=== PATIENT | male | born 1965 | race Caucasian/White ===

== ENCOUNTER 2019-08-19 12:13 | Observation (INO) ==
[2019-08-19 13:07] LABS: BASOPHILS # (AUTO) 0.1 X10^3/uL (0.0-0.1); EOSINOPHILS % (AUTO) 0.4 % (0.9-2.9); HEMATOCRIT 39.4 % (42.0-54.0); HEMOGLOBIN 13.3 g/dL (13.5-18.0); LYMPHOCYTES # (AUTO) 2.1 X10^3/uL (1.3-2.9); LYMPHOCYTES % (AUTO) 24.9 % (21.0-51.0); MEAN CORPUSCULAR HEMOGLOBIN 30.1 pg (27.0-34.0); MEAN CORPUSCULAR HGB CONC 33.7 g/dL (33.0-35.0); MEAN CORPUSCULAR VOLUME 89.3 fL (80.0-100.0); MEAN PLATELET VOLUME 6.6 fL (7.4-11.0); MONOCYTES # (AUTO) 0.5 x10^3/uL (0.3-0.8); MONOCYTES % (AUTO) 5.6 % (0.0-13.0); NEUTROPHILS # (AUTO) 5.7 x10^3/uL (2.2-4.8); NEUTROPHILS % (AUTO) 68.1 % (42.0-75.0); PLATELET COUNT 349 X10^3/uL (150.0-450.0); RED BLOOD COUNT 4.41 X10^6/uL (4.7-6.0); WHITE BLOOD COUNT 8.3 X10^3/uL (3.6-10.0)
[2019-08-19 13:32] LABS: ALANINE AMINOTRANSFERASE 126 Units/L (12-78); ALBUMIN 4.1 g/dL (3.4-5.0); ALKALINE PHOSPHATASE 164 Units/L (46-116); ASPARTATE AMINO TRANSFERASE 106 Units/L (15-37); BLOOD UREA NITROGEN 16 mg/dL (7-18); CALCIUM 9.1 mg/dL (8.5-10.1); CARBON DIOXIDE 29.8 mmol/L (21-32); CHLORIDE 97 mmol/L (98-107); CKMB % 1.3 % (<4); COR NA(FOR HYPERGLY) 139 mmol/L (136-145); CREATINE KINASE 80 Units/L (39-308); CREATINE KINASE MB < 1.0 ng/mL (0-4.0); CREATININE 1.22 mg/dL (0.70-1.30); LIPASE 184 Units/L (73-393); SODIUM 137 mmol/L (136-145); TOTAL PROTEIN 7.9 g/dL (6.4-8.2); TROPONIN I < 0.02 ng/mL (0-1.5); eGFR NON BLACK RACES > 60 (>60)
--- NOTE | 2019-08-19 14:00 | RAD ---
HISTORYSOBSTUDYCHEST x-ray, 1 VIEWCOMPARISONX-ray 12/26/2018FINDINGSCardiac device leads are unchanged in position. Borderline cardiomegaly is seen but no pulmonary venous congestion is seen. No pneumothorax, focal infiltrate, or pleural effusion is seen.IMPRESSIONBorderline cardiomegaly without evidence of CHF.Electronically signed by: Maximo Linton (August 19, 2019 13:59:25)
[2019-08-19] MEDS ORDERED: PROTONIX TAB 40 MG PO PRN (15:02)
[2019-08-19] MEDS ORDERED: NS 1000 ML 1,000 ML IV SCH (16:00)
[2019-08-19] MEDS: CORDARONE TAB 200 MG PO SCH (16:19)
[2019-08-19] MEDS: D5 1/2 NS 1000 ML 1,000 ML IV SCH (16:20)
--- NOTE | 2019-08-19 16:40 | US ---
HISTORYABNORMAL CT, RUQ PAINSTUDYGALL BLADDERCOMPARISONCT abdomen and pelvis August 18, 2019 a study which suggests a gallbladder wall thickening.TECHNIQUEMultiple leos scale and color flow Doppler images of the right upper quadrant were obtained.FINDINGSThe liver is normal in echotexture and size. The right lobe of the liver measures 15.4 cm sagittal. Normal hepatopetal flow is seen in the portal vein and normal flow is seen in the hepatic veins with a patent hepatic artery. No dilated ducts or focal hepatic lesions are observed. No focal intraparenchymal mass or intrahepatic biliary ductal dilatation can be observeThe right kidney appears normal in size without focal parenchymal mass or nephrolithiasis. The right kidney measurers 9.7 cm in length by 4 point 6 by 5 cm with a cortical thickness of 1.38 cm. Normal vascular flow is seen to the right kidney. There is diffuse gallbladder wall thickening seen on ultrasound as was seen on the CT scan yesterday. No stones are identified. There is no focal gallbladder wall mass but there is rather diffuse gallbladder wall thickening. On 1 or 2 images there may be minimal fluid around the gallbladder. Again no stones or polyps are identified. Gallbladder wall thickness is nearly 5 mm. The common duct is normal measuring 4 mm. No hydronephrosis or perirenal fluid can be observed. The pancreatic head and body are unremarkable. The pancreatic tail is largely obscured by overlying bowel gas.IMPRESSIONDiffuse gallbladder wall thickening at 5 mm without stones or polyps minimal pericystic fluid could not be excluded. Findings are suggestive of a calculus cholecystitis. No evidence of liver disease or ascites is seen to suggest the cause of gallbladder wall thickening.The liver common duct are normal. The right kidney and visualized portions of the pancreas are normal.Electronically signed by: SUZANNE TATUM (August 19, 2019 16:39:26)
[2019-08-19] MEDS: PROTONIX INJ 40 MG VIAL IVP SCH ×3 (16:41→23:00)
[2019-08-19] MEDS ORDERED: PROTONIX INJ 40 MG VIAL ONE (16:42)
[2019-08-19] MEDS: COREG TAB 3.125 MG PO SCH (21:00)
[2019-08-19] MEDS: HumuLIN R SC PRN (21:00)
[2019-08-19] MEDS ORDERED: PROTONIX TAB 40 MG PO SCH (21:00)
[2019-08-19] MEDS: REQUIP PO SCH (21:00)
--- NOTE | 2019-08-19 22:06 | DR.H&P ---
H&P History & Physical for Day of: H&P Date: 08/19/19 Chief Complaint Chief Complaint: abdominal pain, SOB Allergies Allergies Allergy/AdvReac Type Severity Reaction Status Date / Time No Known Drug Allergies Allergy Verified 08/18/19 13:16 History of Present Illness History of Present Illness: Mr. Ramirez is a 53y/o male with a PMH of CAD s/p PCI, AICD, CHF, Type 2 DM, HTN, HLD was seen in the clinic by Dr. Hoskins for abdominal pain. Patient went to the ED on 08/18/2019 with similar symptoms including diffuse abdominal pain and weakness. CTAP showed gallbladder thickening, lab work did not show any significant abnormalities so patient was scheduled to see Dr. Hoskins outpatient. Due to his recent worsening of SOB and abdominal pain, patient was directly admitted from clinic. He reports having diffuse abdominal pain, constipation and has been feeling sick since Apr. He also reports black colored stools. He was admitted in [place] for similar complaints in Apr and was suppose to have a colonoscopy. He started having some cardiac problems with his AICD and then colonoscopy was never done. He has not seen GI. He sees Dr. Soares for cardio, recently seen last week with no changes in medications. Patient reports SOB at rest and exertion, worse when lying flat. He uses oxygen and CPAP at night but not every night. He reports chronic fatigue and weakness. Denies weight changes, no LE edema. He reports abdominal distension, takes stool softners for constipation. Denies fever or chills. He reports occasional nausea or vomiting. Plan: admit to med-surg, check CBC, CMP, Lipase, cardiac profile, FOBT, EKG, CXR, ECHO and gallbladder U/S Resume home medications except Plavix, aldactone, bumex and Eliquis. Start gentle hydration with IVF. Clears for now and then NPO after midnight. Dr. Hoskins will be seeing the patient. Past Medical History Past Medical History: CHF, Coronary Artery Disease, Diabetes, Dyslipidemia and Sleep Apnea Past Surgical History Surgical History: Angioplasty/Stents Additional Surgical History: AICD placement Social History Does patient currently use any type of tobacco product: Yes Have you used tobacco products in the last 12 months: Yes Type of Tobacco Use: Cigarettes How many years tobacco product used: 20 Does any household member use tobacco: No Alcohol Use: Rarely Drug Use: None Prescription drug monitoring program results: PDMP was not reviewed Medications Home Medications: No Known Drug Allergies Allergy (Verified 08/18/19 13:16) CONTINUE taking the following medications amiodarone 100 mg PO DAILY 08/19/19 [History] apixaban [Eliquis] 5 mg PO BID 08/19/19 [History] bumetanide 1 mg PO BID 08/19/19 [History] carvedilol 3.125 mg PO BID 08/19/19 [History] clopidogrel 75 mg PO DAILY 08/19/19 [History] glimepiride 4 mg PO DAILY 08/19/19 [History] metformin 1,000 mg PO BID 08/19/19 [History] pantoprazole 40 mg PO TID PRN 08/19/19 [History] ropinirole 0.5 mg PO HS 08/19/19 [History] spironolactone 25 mg PO BID 08/19/19 [History] Labs Result Diagrams: 08/20/19 05:54 08/20/19 05:54 Labs: Laboratory WBC 8.3 X10^3/uL (3.6-10.0) 08/19/19 12:58 RBC 4.41 X10^6/uL (4.7-6.0) L 08/19/19 12:58 Hgb 13.3 g/dL (13.5-18.0) L 08/19/19 12:58 Hct 39.4 % (42.0-54.0) L 08/19/19 12:58 MCV 89.3 fL (80.0-100.0) 08/19/19 12:58 MCH 30.1 pg (27.0-34.0) 08/19/19 12:58 MCHC 33.7 g/dL (33.0-35.0) 08/19/19 12:58 RDW 16.0 % (11.6-16.5) 08/19/19 12:58 Plt Count 349 X10^3/uL (150.0-450.0) 08/19/19 12:58 MPV 6.6 fL (7.4-11.0) L 08/19/19 12:58 Neut % (Auto) 68.1 % (42.0-75.0) 08/19/19 12:58 Lymph % (Auto) 24.9 % (21.0-51.0) 08/19/19 12:58 [place] % (Auto) 5.6 % (0.0-13.0) 08/19/19 12:58 Eos % (Auto) 0.4 % (0.9-2.9) L 08/19/19 12:58 Baso % (Auto) 1.0 % (0.2-1.0) 08/19/19 12:58 Neut # (Auto) 5.7 x10^3/uL (2.2-4.8) H 08/19/19 12:58 Lymph # (Auto) 2.1 X10^3/uL (1.3-2.9) 08/19/19 12:58 [place] # (Auto) 0.5 x10^3/uL (0.3-0.8) 08/19/19 12:58 Eos # (Auto) 0.0 x10^3/uL (0.0-0.2) 08/19/19 12:58 Baso # (Auto) 0.1 X10^3/uL (0.0-0.1) 08/19/19 12:58 Absolute Nucleated RBC 0.1 /100WBC 08/19/19 12:58 PT 15.2 SECONDS (11.8-14.3) 08/19/19 12:58 INR Target Range - 08/19/19 12:58 INR 1.23 (0.8-1.3) 08/19/19 12:58 Sodium 137 mmol/L (136-145) 08/19/19 12:58 Corrected Sodium 139 mmol/L (136-145) 08/19/19 12:58 Potassium 3.7 mmol/L (3.5-5.1) 08/19/19 12:58 Chloride 97 mmol/L (98-107) L 08/19/19 12:58 Carbon Dioxide 29.8 mmol/L (21-32) 08/19/19 12:58 BUN 16 mg/dL (7-18) 08/19/19 12:58 Creatinine 1.22 mg/dL (0.70-1.30) 08/19/19 12:58 Est GFR (MDRD) Af Amer > 60 (>60) 08/19/19 12:58 Est GFR (MDRD) Non-Af > 60 (>60) 08/19/19 12:58 Glucose 184 mg/dL (65-99) H 08/19/19 12:58 POC Glucose (mg/dL) 216 mg/dL (65-99) H 08/19/19 20:16 Calcium 9.1 mg/dL (8.5-10.1) 08/19/19 12:58 Corrected Calcium TNP 08/19/19 12:58 Magnesium 2.4 mg/dL (1.7-2.9) 08/19/19 12:58 Total Bilirubin 0.70 mg/dL (0.2-1.0) 08/19/19 12:58 AST 106 Units/L (15-37) H 08/19/19 12:58 ALT 126 Units/L (12-78) H 08/19/19 12:58 Alkaline Phosphatase 164 Units/L (46-116) H 08/19/19 12:58 Creatine Kinase 80 Units/L (39-308) 08/19/19 12:58 CK-MB (CK-2) < 1.0 ng/mL (0-4.0) 08/19/19 12:58 CK/CKMB % Calc 1.3 % (<4) 08/19/19 12:58 Troponin I < 0.02 ng/mL (0-1.5) 08/19/19 12:58 Total Protein 7.9 g/dL (6.4-8.2) 08/19/19 12:58 Albumin 4.1 g/dL (3.4-5.0) 08/19/19 12:58 Globulin 3.8 g/dL (2.5-4.5) 08/19/19 12:58 Albumin/Globulin Ratio 1.1 Ratio (1.1-2.1) 08/19/19 12:58 Amylase 26 Units/L (25-115) 08/19/19 12:58 Lipase 184 Units/L (73-393) 08/19/19 12:58 Stool Description <1g,unformed/soft, 08/19/19 18:20 Stl Occult Blood (IFOB) Negative (NEGATIVE) 08/19/19 18:20 SARS-CoV-2 (PCR) Negative (NEGATIVE) 08/19/19 18:00 Review of Systems Constitutional: Weakness Eyes: No Symptoms Reported ENT: No Symptoms Reported Respiratory: Cough, Dry, Shortness of Breath and SOB with Excertion Cardiovascular: Orthopnea Gastrointestinal: Nausea, Vomiting, Abdominal Pain, Constipation and Hematochezia Genitourinary: No Symptoms Reported Musculoskeletal: No Symptoms Reported Skin: No Symptoms Reported Neurological: No Symptoms Reported Physical Exam Vital Signs: Temperature 97.9 F Pulse Rate [Radial] 89 Respiratory Rate 18 Blood Pressure [Right Arm] 113/78 Blood Pressure 106/71 O2 Sat by Pulse Oximetry 99 Oriented: Normal Eyes: Normal Ear: Normal Nose: Normal Respiratory: Clear Throughout Cardiovascular: Normal Auscultation: Bowel Sounds: Normal Tenderness: Diffuse, Mild and Other (abdominal distended ) Skin: Normal Musculoskeletal: Normal Psychiatric: Normal Mood Description: Calm Affect: Normal Speech Pattern: Clear and Appropriate Assessment/Plan (1) Abdominal pain: Qualifiers: Abdominal location: generalized Qualified Code(s): R10.84 - Generalized abdominal pain Status: Acute (2) Thickening of wall of gallbladder with pericholecystic fluid: Status: Acute (3) CAD (coronary artery disease): Qualifiers: Associated angina: without angina Coronary Disease-Associated Artery/Lesion type: [place] artery [place] vs. transplanted heart: [place] heart Qualified Code(s): I25.10 - Atherosclerotic heart disease of [place] coronary artery without angina pectoris Status: Acute (4) AICD (automatic cardioverter/defibrillator) present: Status: Acute (5) CHF (congestive heart failure): Qualifiers: Heart failure chronicity: chronic Heart failure type: unspecified Qualified Code(s): I50.9 - Heart failure, unspecified Status: Acute (6) Diabetes: Qualifiers: Diabetes mellitus complication status: without complication Diabetes mellitus nursing home insulin use: without nursing home use Diabetes mellitus type: type 2 Qualified Code(s): E11.9 - Type 2 diabetes mellitus without complicati ons Status: Acute (7) Fatty liver: Status: Acute (8) HTN (hypertension): Qualifiers: Hypertension type: essential hypertension Qualified Code(s): I10 - Essential (primary) hypertension Status: Acute (9) Atrial fibrillation: Qualifiers: Atrial fibrillation type: unspecified chronic Qualified Code(s): I48.20 - Chronic atrial fibrillation, unspecified; I48.2 - Chronic atrial fibrillation Status: Acute Review H&P Reviewed: Yes Patient was examined?: Yes
[2019-08-20 01:51] LABS: CKMB % 1.6 % (<4); CREATINE KINASE 64 Units/L (39-308); CREATINE KINASE MB < 1.0 ng/mL (0-4.0); TROPONIN I < 0.02 ng/mL (0-1.5)
[2019-08-20 06:32] LABS: BASOPHILS % (AUTO) 0.5 % (0.2-1.0); EOSINOPHILS % (AUTO) 0.2 % (0.9-2.9); HEMATOCRIT 34.5 % (42.0-54.0); HEMOGLOBIN 11.9 g/dL (13.5-18.0); LYMPHOCYTES # (AUTO) 1.4 X10^3/uL (1.3-2.9); LYMPHOCYTES % (AUTO) 19.6 % (21.0-51.0); MEAN CORPUSCULAR HEMOGLOBIN 30.6 pg (27.0-34.0); MEAN CORPUSCULAR HGB CONC 34.4 g/dL (33.0-35.0); MEAN CORPUSCULAR VOLUME 88.9 fL (80.0-100.0); MEAN PLATELET VOLUME 6.8 fL (7.4-11.0); MONOCYTES # (AUTO) 0.4 x10^3/uL (0.3-0.8); MONOCYTES % (AUTO) 5.4 % (0.0-13.0); NEUTROPHILS # (AUTO) 5.3 x10^3/uL (2.2-4.8); NEUTROPHILS % (AUTO) 74.3 % (42.0-75.0); PLATELET COUNT 279 X10^3/uL (150.0-450.0); RED BLOOD COUNT 3.88 X10^6/uL (4.7-6.0); RED CELL DISTRIBUTION WIDTH 16.1 % (11.6-16.5); WHITE BLOOD COUNT 7.2 X10^3/uL (3.6-10.0)
[2019-08-20 06:36] LABS: ALANINE AMINOTRANSFERASE 126 Units/L (12-78); ALBUMIN 3.4 g/dL (3.4-5.0); ALKALINE PHOSPHATASE 131 Units/L (46-116); ASPARTATE AMINO TRANSFERASE 122 Units/L (15-37); BLOOD UREA NITROGEN 11 mg/dL (7-18); CALCIUM 8.3 mg/dL (8.5-10.1); CARBON DIOXIDE 29.8 mmol/L (21-32); CHLORIDE 100 mmol/L (98-107); COR NA(FOR HYPERGLY) 139 mmol/L (136-145); CREATININE 1.11 mg/dL (0.70-1.30); SODIUM 138 mmol/L (136-145); TOTAL PROTEIN 6.5 g/dL (6.4-8.2); eGFR NON BLACK RACES > 60 (>60)
[2019-08-20] MEDS: D5 1/2 NS 1000 ML 1,000 ML IV SCH ×2 (06:47→14:49)
--- NOTE | 2019-08-20 08:44 | PCM.PROG ---
Progress Note Progress Note for Day of Date of Exam: 08/20/19 Subjective Subjective: Patient seen at bedside, reports doing ok. He had an episode of SOB and chest pain overnight. EKG and cardiac profile was ordered. He does use O2 and CPAP at night but not every night. He was placed on NC and SOB improved. He has some epigastric abdominal pain. He is NPO for possible EGD today. Dr. Hoskins following. Labs: Hgb 11.9, FOBT (-), lipase (-), CEA pending CXR: no acute pulmonary congestion/CHF U/S GB: suggestive of acalculous cholecystitis Echo pending Plan: continue NPO, follow echo results, possible EGD today, continue protonix, Eliquis held for procedure. Patient is high risk for any surgical intervention. Past Medical Family Social History Past Med/Fam/Surg Hx: No changes since H&P Allergies: Allergies No Known Drug Allergies Allergy (Verified 08/18/19 13:16) Review of Systems ROS: No change since H&P Vital Signs and I&O's Vital Signs: Temperature 98.2 F Pulse Rate [Radial] 78 Respiratory Rate 20 Blood Pressure [Right Arm] 107/76 Blood Pressure 106/71 O2 Sat by Pulse Oximetry 100 Intake and Output: Intake & Output 08/17/19 08/18/19 08/19/19 08/20/19 23:59 23:59 23:59 23:59 Intake Total 2204 / 2204 364 / 364 Output Total 0 / 0 Balance 2204 / 2204 364 / 364 Physical Exam Oriented: Normal Eyes: Normal Ear: Normal Nose: Normal Cardiovascular: Normal Auscultation: Bowel Sounds: Normal Tenderness: Epigastric, Mild and Other (abdominal distended ) Skin: Normal Musculoskeletal: Normal Psychiatric: Normal Mood Description: Calm Affect: Normal Speech Pattern: Clear and Appropriate Laboratory and Diagnostics Result Diagrams: 08/20/19 05:54 08/20/19 05:54 Labs: Laboratory WBC 7.2 X10^3/uL (3.6-10.0) 08/20/19 05:54 RBC 3.88 X10^6/uL (4.7-6.0) L 08/20/19 05:54 Hgb 11.9 g/dL (13.5-18.0) L 08/20/19 05:54 Hct 34.5 % (42.0-54.0) L 08/20/19 05:54 MCV 88.9 fL (80.0-100.0) 08/20/19 05:54 MCH 30.6 pg (27.0-34.0) 08/20/19 05:54 MCHC 34.4 g/dL (33.0-35.0) 08/20/19 05:54 RDW 16.1 % (11.6-16.5) 08/20/19 05:54 Plt Count 279 X10^3/uL (150.0-450.0) 08/20/19 05:54 MPV 6.8 fL (7.4-11.0) L 08/20/19 05:54 Neut % (Auto) 74.3 % (42.0-75.0) 08/20/19 05:54 Lymph % (Auto) 19.6 % (21.0-51.0) L 08/20/19 05:54 [place] % (Auto) 5.4 % (0.0-13.0) 08/20/19 05:54 Eos % (Auto) 0.2 % (0.9-2.9) L 08/20/19 05:54 Baso % (Auto) 0.5 % (0.2-1.0) 08/20/19 05:54 Neut # (Auto) 5.3 x10^3/uL (2.2-4.8) H 08/20/19 05:54 Lymph # (Auto) 1.4 X10^3/uL (1.3-2.9) 08/20/19 05:54 [place] # (Auto) 0.4 x10^3/uL (0.3-0.8) 08/20/19 05:54 Eos # (Auto) 0.0 x10^3/uL (0.0-0.2) 08/20/19 05:54 Baso # (Auto) 0.0 X10^3/uL (0.0-0.1) 08/20/19 05:54 Absolute Nucleated RBC 0.0 /100WBC 08/20/19 05:54 PT 15.2 SECONDS (11.8-14.3) 08/19/19 12:58 INR Target Range - 08/19/19 12:58 INR 1.23 (0.8-1.3) 08/19/19 12:58 Sodium 138 mmol/L (136-145) 08/20/19 05:54 Corrected Sodium 139 mmol/L (136-145) 08/20/19 05:54 Potassium 3.4 mmol/L (3.5-5.1) L 08/20/19 05:54 Chloride 100 mmol/L (98-107) 08/20/19 05:54 Carbon Dioxide 29.8 mmol/L (21-32) 08/20/19 05:54 BUN 11 mg/dL (7-18) 08/20/19 05:54 Creatinine 1.11 mg/dL (0.70-1.30) 08/20/19 05:54 Est GFR (MDRD) Af Amer > 60 (>60) 08/20/19 05:54 Est GFR (MDRD) Non-Af > 60 (>60) 08/20/19 05:54 Glucose 122 mg/dL (65-99) H 08/20/19 05:54 POC Glucose (mg/dL) 140 mg/dL (65-99) H 08/20/19 06:23 Calcium 8.3 mg/dL (8.5-10.1) L 08/20/19 05:54 Corrected Calcium TNP 08/20/19 05:54 Magnesium 2.4 mg/dL (1.7-2.9) 08/19/19 12:58 Total Bilirubin 0.70 mg/dL (0.2-1.0) 08/20/19 05:54 AST 122 Units/L (15-37) H 08/20/19 05:54 ALT 126 Units/L (12-78) H 08/20/19 05:54 Alkaline Phosphatase 131 Units/L (46-116) H 08/20/19 05:54 Creatine Kinase 64 Units/L (39-308) 08/20/19 01:00 CK-MB (CK-2) < 1.0 ng/mL (0-4.0) 08/20/19 01:00 CK/CKMB % Calc 1.6 % (<4) 08/20/19 01:00 Troponin I < 0.02 ng/mL (0-1.5) 08/20/19 01:00 Total Protein 6.5 g/dL (6.4-8.2) 08/20/19 05:54 Albumin 3.4 g/dL (3.4-5.0) 08/20/19 05:54 Globulin 3.1 g/dL (2.5-4.5) 08/20/19 05:54 Albumin/Globulin Ratio 1.1 Ratio (1.1-2.1) 08/20/19 05:54 Amylase 26 Units/L (25-115) 08/19/19 12:58 Lipase 184 Units/L (73-393) 08/19/19 12:58 Stool Description <1g,unformed/soft, 08/19/19 18:20 Stl Occult Blood (IFOB) Negative (NEGATIVE) 08/19/19 18:20 SARS-CoV-2 (PCR) Negative (NEGATIVE) 08/19/19 18:00 Plan (1) Abdominal pain: Status: Acute Qualifiers: Abdominal location: generalized Qualified Code(s): R10.84 - Generalized abdominal pain (2) Thickening of wall of gallbladder with pericholecystic fluid: Status: Acute (3) CAD (coronary artery disease): Status: Acute Qualifiers: Associated angina: without angina Coronary Disease-Associated Artery/Lesion type: [place] artery [place] vs. transplanted heart: [place] heart Qualified Code(s): I25.10 - Atherosclerotic heart disease of [place] coronary a rtery without angina pectoris (4) AICD (automatic cardioverter/defibrillator) present: Status: Acute (5) CHF (congestive heart failure): Status: Acute Qualifiers: Heart failure chronicity: chronic Heart failure type: unspecified Qualified Code(s): I50.9 - Heart failure, unspecified (6) Diabetes: Status: Acute Qualifiers: Diabetes mellitus complication status: without complication Diabetes mellitus alf insulin use: without alf use Diabetes mellitus type: type 2 Qualified Code(s): E11.9 - Type 2 diabetes mellitus without complications (7) Fatty liver: Status: Acute (8) HTN (hypertension): Status: Acute Qualifiers: Hypertension type: essential hypertension Qualified Code(s): I10 - Essential (primary) hypertension (9) Atrial fibrillation: Status: Acute Qualifiers: Atrial fibrillation type: unspecified chronic Qualified Code(s): I48.20 - Chronic atrial fibrillation, unspecified; I48.2 - Chronic atrial fibrillation
[2019-08-20] MEDS: CORDARONE TAB 200 MG PO SCH (09:11)
[2019-08-20] MEDS: COREG TAB 3.125 MG PO SCH ×2 (09:11→21:16)
[2019-08-20] MEDS: PROTONIX INJ 40 MG VIAL IVP SCH ×2 (09:12→21:15)
[2019-08-20] MEDS ORDERED: AMIDATE INJ 40 MG VIAL ONE (11:16)
[2019-08-20] MEDS ORDERED: POTASSIUM CHLORIDE LIQ 20 MEQ UDC PO PRN (12:25)
[2019-08-20] MEDS ORDERED: K-DUR TAB 20 MEQ PO PRN (12:25)
[2019-08-20] MEDS ORDERED: KLOR-CON PO PRN (12:25)
[2019-08-20] MEDS ORDERED: MICRO K EXTEN CAP 10 MEQ PO PRN (12:25)
[2019-08-20] MEDS ORDERED: NS 1000 ML 0 ML ONE (13:05)
[2019-08-20] MEDS ORDERED: VERSED ONE (13:08)
[2019-08-20] MEDS: DUONEB 0.5 MG/3 MG (3 mL) NEB SCH ×3 (13:14→21:16)
[2019-08-20] MEDS: CARAFATE PO SCH ×2 (14:37→21:16)
[2019-08-20] MEDS: HumuLIN R SC PRN ×2 (17:36→21:16)
[2019-08-20] MEDS: REQUIP PO SCH (21:16)
[2019-08-21] MEDS: DUONEB 0.5 MG/3 MG (3 mL) NEB SCH (05:10)
[2019-08-21] MEDS: D5 1/2 NS 1000 ML 1,000 ML IV SCH (05:45)
[2019-08-21] MEDS: HumuLIN R SC PRN (05:47)
[2019-08-21] MEDS: CARAFATE PO SCH (05:47)
[2019-08-21 06:30] LABS: BASOPHILS # (AUTO) 0.1 X10^3/uL (0.0-0.1); BASOPHILS % (AUTO) 0.9 % (0.2-1.0); EOSINOPHILS % (AUTO) 0.3 % (0.9-2.9); HEMATOCRIT 36.4 % (42.0-54.0); HEMOGLOBIN 12.4 g/dL (13.5-18.0); LYMPHOCYTES # (AUTO) 1.9 X10^3/uL (1.3-2.9); LYMPHOCYTES % (AUTO) 25.1 % (21.0-51.0); MEAN CORPUSCULAR HEMOGLOBIN 30.3 pg (27.0-34.0); MEAN CORPUSCULAR VOLUME 89.3 fL (80.0-100.0); MEAN PLATELET VOLUME 7.1 fL (7.4-11.0); MONOCYTES # (AUTO) 0.4 x10^3/uL (0.3-0.8); MONOCYTES % (AUTO) 5.2 % (0.0-13.0); NEUTROPHILS # (AUTO) 5.3 x10^3/uL (2.2-4.8); NEUTROPHILS % (AUTO) 68.5 % (42.0-75.0); PLATELET COUNT 309 X10^3/uL (150.0-450.0); RED BLOOD COUNT 4.07 X10^6/uL (4.7-6.0); RED CELL DISTRIBUTION WIDTH 16.3 % (11.6-16.5); WHITE BLOOD COUNT 7.7 X10^3/uL (3.6-10.0)
[2019-08-21 06:42] LABS: ALANINE AMINOTRANSFERASE 136 Units/L (12-78); ALBUMIN 3.6 g/dL (3.4-5.0); ALKALINE PHOSPHATASE 158 Units/L (46-116); ASPARTATE AMINO TRANSFERASE 99 Units/L (15-37); BLOOD UREA NITROGEN 11 mg/dL (7-18); CALCIUM 8.3 mg/dL (8.5-10.1); CARBON DIOXIDE 28.6 mmol/L (21-32); CHLORIDE 101 mmol/L (98-107); COR NA(FOR HYPERGLY) 139 mmol/L (136-145); CREATININE 1.05 mg/dL (0.70-1.30); SODIUM 137 mmol/L (136-145); TOTAL PROTEIN 7.1 g/dL (6.4-8.2); eGFR NON BLACK RACES > 60 (>60)
[2019-08-21] MEDS ORDERED: PLAVIX ONE (08:38)
[2019-08-21] MEDS ORDERED: BUMEX TAB 1 MG ONE (08:38)
[2019-08-21] MEDS ORDERED: ELIQUIS ONE (08:38)
[2019-08-21] MEDS ORDERED: ALDACTONE TAB 25 MG ONE (08:39)
--- NOTE | 2019-08-21 08:47 | W.DIS.FURT ---
Summary of Discharge Discharge Summary of Date Date of Exam: 08/21/19 Admission Date Date of Admission: 08/19/19 Admission Diagnosis Hospital Course: Mr. Ramirez is a 53y/o male with a PMH of CAD s/p PCI, AICD, CHF, Type 2 DM, HTN, HLD was seen in the clinic by Dr. Hoskins for abdominal pain. Patient went to the ED on 08/18/2019 with similar symptoms including diffuse abdominal pain and weakness. CTAP showed gallbladder thickening, lab work did not show any significant abnormalities so patient was scheduled to see Dr. Hoskins outpatient. Due to his recent worsening of SOB and abdominal pain, patient was directly admitted from clinic. He reports having diffuse abdominal pain, constipation and has been feeling sick since Apr. He also reports black colored stools. He was admitted in [place] for similar complaints in Apr and was suppose to have a colonoscopy. He started having some cardiac problems with his AICD and then colonoscopy was never done. He has not seen GI. He sees Dr. Soares for cardio, recently seen last week with no changes in medications. Patient reports SOB at rest and exertion, worse when lying flat. He uses oxygen and CPAP at night but not every night. He reports chronic fatigue and weakness. Denies weight changes, no LE edema. He reports abdominal distension, takes stool softners for constipation. Denies fever or chills. He reports occasional nausea or vomiting. Patient was admitted for further work-up for abdominal pain. Gall bladder U/S showed acalculous cholecystitis. CXR, EKG were normal. ECHO showed dilated cardiomyopathy with EF 31%. EGD was done due to black stools and showed gastritis and duodenitis. Patient was started on protonix BID and carafate. Patient is very high risk for surgery and was told that if he does need cholecystectomy then he will need to go to [place]. Patient's diet was advanced as tolerated and he was stable for discharge. He will follow up with me and Dr. Hoskins in one week. Vital Signs: Vital Signs (72 hours) 08/18/19 13:16 08/19/19 12:50 08/19/19 16:00 Temperature 97.6 F 97.6 F Pulse Rate Pulse Rate [Radial] 94 H 94 H Respiratory Rate 18 18 Blood Pressure 106/71 Blood Pressure [Right Arm] 123/77 108/70 O2 Sat by Pulse Oximetry 99 100 08/19/19 19:28 08/19/19 23:41 08/20/19 03:56 Temperature 97.9 F 97.8 F 98.1 F Pulse Rate Pulse Rate [Radial] 89 89 86 Respiratory Rate 18 22 18 Blood Pressure Blood Pressure [Right Arm] 113/78 103/72 98/63 O2 Sat by Pulse Oximetry 99 96 100 08/20/19 08:00 08/20/19 12:00 08/20/19 13:30 Temperature 98.2 F 98.0 F 97.6 F Pulse Rate Pulse Rate [Radial] 78 84 98 H Respiratory Rate 20 20 20 Blood Pressure Blood Pressure [Right Arm] 107/76 117/78 132/93 O2 Sat by Pulse Oximetry 100 100 91 L 08/20/19 13:45 08/20/19 14:00 08/20/19 14:15 Temperature 97.6 F 97.6 F 97.6 F Pulse Rate Pulse Rate [Radial] 97 H 90 89 Respiratory Rate 20 20 20 Blood Pressure Blood Pressure [Right Arm] 120/87 105/74 109/77 O2 Sat by Pulse Oximetry 95 100 97 08/20/19 14:30 08/20/19 16:00 08/20/19 17:15 Temperature 97.6 F 97.6 F Pulse Rate 88 Pulse Rate [Radial] 95 H 95 H Respiratory Rate 20 20 Blood Pressure Blood Pressure [Right Arm] 132/82 128/80 O2 Sat by Pulse Oximetry 98 94 L 96 08/20/19 18:00 08/20/19 20:00 08/20/19 21:16 Temperature 98.2 F Pulse Rate 93 H Pulse Rate [Radial] 87 90 Respiratory Rate 18 Blood Pressure Blood Pressure [Right Arm] 116/87 O2 Sat by Pulse Oximetry 98 100 96 08/21/19 00:00 08/21/19 04:00 Temperature 97.8 F 97.8 F Pulse Rate Pulse Rate [Radial] 96 H 78 Respiratory Rate 20 22 Blood Pressure Blood Pressure [Right Arm] 105/73 110/71 O2 Sat by Pulse Oximetry 98 98 Labs: Laboratory Last Values WBC 7.7 X10^3/uL (3.6-10.0) 08/21/19 05:21 RBC 4.07 X10^6/uL (4.7-6.0) L 08/21/19 05:21 Hgb 12.4 g/dL (13.5-18.0) L 08/21/19 05:21 Hct 36.4 % (42.0-54.0) L 08/21/19 05:21 MCV 89.3 fL (80.0-100.0) 08/21/19 05:21 MCH 30.3 pg (27.0-34.0) 08/21/19 05:21 MCHC 34.0 g/dL (33.0-35.0) 08/21/19 05:21 RDW 16.3 % (11.6-16.5) 08/21/19 05:21 Plt Count 309 X10^3/uL (150.0-450.0) 08/21/19 05:21 MPV 7.1 fL (7.4-11.0) L 08/21/19 05:21 Neut % (Auto) 68.5 % (42.0-75.0) 08/21/19 05:21 Lymph % (Auto) 25.1 % (21.0-51.0) 08/21/19 05:21 [place] % (Auto) 5.2 % (0.0-13.0) 08/21/19 05:21 Eos % (Auto) 0.3 % (0.9-2.9) L 08/21/19 05:21 Baso % (Auto) 0.9 % (0.2-1.0) 08/21/19 05:21 Neut # (Auto) 5.3 x10^3/uL (2.2-4.8) H 08/21/19 05:21 Lymph # (Auto) 1.9 X10^3/uL (1.3-2.9) 08/21/19 05:21 [place] # (Auto) 0.4 x10^3/uL (0.3-0.8) 08/21/19 05:21 Eos # (Auto) 0.0 x10^3/uL (0.0-0.2) 08/21/19 05:21 Baso # (Auto) 0.1 X10^3/uL (0.0-0.1) 08/21/19 05:21 Absolute Nucleated RBC 0.1 /100WBC 08/21/19 05:21 PT 15.2 SECONDS (11.8-14.3) 08/19/19 12:58 INR Target Range - 08/19/19 12:58 INR 1.23 (0.8-1.3) 08/19/19 12:58 Sodium 137 mmol/L (136-145) 08/21/19 05:21 Corrected Sodium 139 mmol/L (136-145) 08/21/19 05:21 Potassium 3.6 mmol/L (3.5-5.1) 08/21/19 05:21 Chloride 101 mmol/L (98-107) 08/21/19 05:21 Carbon Dioxide 28.6 mmol/L (21-32) 08/21/19 05:21 BUN 11 mg/dL (7-18) 08/21/19 05:21 Creatinine 1.05 mg/dL (0.70-1.30) 08/21/19 05:21 Est GFR (MDRD) Af Amer > 60 (>60) 08/21/19 05:21 Est GFR (MDRD) Non-Af > 60 (>60) 08/21/19 05:21 Glucose 192 mg/dL (65-99) H 08/21/19 05:21 POC Glucose (mg/dL) 189 mg/dL (65-99) H 08/21/19 05:37 Calcium 8.3 mg/dL (8.5-10.1) L 08/21/19 05:21 Corrected Calcium TNP 08/21/19 05:21 Magnesium 2.4 mg/dL (1.7-2.9) 08/19/19 12:58 Total Bilirubin 0.60 mg/dL (0.2-1.0) 08/21/19 05:21 AST 99 Units/L (15-37) H 08/21/19 05:21 ALT 136 Units/L (12-78) H 08/21/19 05:21 Alkaline Phosphatase 158 Units/L (46-116) H 08/21/19 05:21 Creatine Kinase 64 Units/L (39-308) 08/20/19 01:00 CK-MB (CK-2) < 1.0 ng/mL (0-4.0) 08/20/19 01:00 CK/CKMB % Calc 1.6 % (<4) 08/20/19 01:00 Troponin I < 0.02 ng/mL (0-1.5) 08/20/19 01:00 Total Protein 7.1 g/dL (6.4-8.2) 08/21/19 05:21 Albumin 3.6 g/dL (3.4-5.0) 08/21/19 05:21 Globulin 3.5 g/dL (2.5-4.5) 08/21/19 05: Albumin/Globulin Ratio 1.0 Ratio (1.1-2.1) L 08/21/19 05:21 Amylase 26 Units/L (25-115) 08/19/19 12:58 Lipase 184 Units/L (73-393) 08/19/19 12:58 Stool Description <1g,unformed/soft, 08/19/19 18:20 Stl Occult Blood (IFOB) Negative (NEGATIVE) 08/19/19 18:20 SARS-CoV-2 (PCR) Negative (NEGATIVE) 08/19/19 18:00 Tissue Pathology To follow 08/20/19 13:20 Reason For Visit: ABD PAIN Discharge Date Discharge Date: 08/21/19 Discharge Diagnosis All Active Problems (Updated 08/24/19 @ 11:16 by Shantal Delacruz) Gastritis and duodenitis (Acute) Atrial fibrillation (Chronic) HTN (hypertension) (Chronic) Fatty liver (Chronic) Diabetes (Chronic) CHF (congestive heart failure) (Chronic) AICD (automatic cardioverter/defibrillator) present (Chronic) CAD (coronary artery disease) (Chronic) Abdominal pain (Acute) Thickening of wall of gallbladder with pericholecystic fluid (Acute) Ascites (Acute) Plan of Treatment: Continue with present treatment and follow up plan. Pt is to keep follow up appointment as instructed and take medications as ordered. Discharge Medications Discharge Medications: No Known Drug Allergies Allergy (Verified 08/18/19 13:16) CONTINUE taking the following medications Eliquis 5 mg PO BID 08/19/19 [History] amiodarone 100 mg PO DAILY 08/19/19 [History] bumetanide 1 mg PO BID 08/19/19 [History] carvedilol 3.125 mg PO BID 08/19/19 [History] clopidogrel 75 mg PO DAILY 08/19/19 [History] glimepiride 4 mg PO DAILY 08/19/19 [History] metformin 1,000 mg PO BID 08/19/19 [History] ropinirole 0.5 mg PO HS 08/19/19 [History] spironolactone 25 mg PO BID 08/19/19 [History] New Prescriptions pantoprazole 40 mg PO BID 30 Days #60 tab 08/21/19 [Rx] sucralfate [Carafate] 1 g PO TID 30 Days #90 tab 08/21/19 [Rx] Follow up and Referral Follow Up: 1 Week (PCP) 1 Week (Dr. Hoskins ) Discharge Disposition Assessment: Stable no acute distress noted at time of discharge. Discharge Disposition: Home Discharge Condition: Stable
[2019-08-21] MEDS ORDERED: BUMEX TAB 1 MG PO SCH (09:00)
[2019-08-21] MEDS ORDERED: ALDACTONE TAB 25 MG PO SCH (09:00)
[2019-08-21] MEDS ORDERED: ELIQUIS PO SCH (09:00)
[2019-08-21] MEDS ORDERED: PLAVIX PO SCH (09:00)
[2019-08-21] MEDS: PROTONIX INJ 40 MG VIAL IVP SCH (09:06)
[2019-08-21] MEDS: COREG TAB 3.125 MG PO SCH (09:07)
[2019-08-21] MEDS: CORDARONE TAB 200 MG PO SCH (09:07)
[2019-08-21 12:08] VITALS: BP 120/80
== END 2019-08-21 12:05 | disposition home or self-care (01) ==
LOC: MED/SURG
PROVIDERS: ADMIT Internal Medicine; ATTEND Internal Medicine
DX: K44.9 Diaphragmatic hernia without obstruction or gangrene; K82.8 Other specified diseases of gallbladder; R10.84 Generalized abdominal pain; I48.20 Chronic atrial fibrillation, unspecified; I11.0 Hypertensive heart disease with heart failure; R06.02 Shortness of breath; K76.0 Fatty (change of) liver, not elsewhere classified; I25.10 Atherosclerotic heart disease of native coronary artery without angina pectoris; Z99.81 Dependence on supplemental oxygen; R94.31 Abnormal electrocardiogram [ECG] [EKG]; Z95.810 Presence of automatic (implantable) cardiac defibrillator; E87.6 Hypokalemia; K29.90 Gastroduodenitis, unspecified, without bleeding; I50.9 Heart failure, unspecified; E11.65 Type 2 diabetes mellitus with hyperglycemia
CPT/HCPCS: 36415; 71010; 71045; 76705; 80053; 82150; 82270; 82378; 82550; 82553; 83690; 83735; 84484; 85025; 85610; 87635; 93005; 93306; 94640; 94760; 96360; 96361; 96372; A4216; A4222; C9113; G0378; J1815; J2250; J3490; J7620; S5010

== ENCOUNTER 2019-08-22 17:12 | Observation (INO) ==
--- NOTE | 2019-08-22 17:18 | DR.AMS ---
HPI Time Seen Time Seen by Provider: 08/22/19 17:18 HPI Comment HPI Comment: 53 yo m presents s/p episode of syncope. Recently dc'd from hospital after getting worked up for cholecystitis. Cholecystectomy deferred d/t low ef of 30%. Prev hx of systolic HF w/ reduced ef in the past w/ chronic aicd in place. Today had episode of syncope, preceded by weakness and diaphoresis. No CP, palpitations or abd pain. Lasted approx. 15 min witnessed by son. No seizure like activity. Was breathing t/o episode. Resolved spontaneously on ems arrival. Denies f/c, focal numbness/ weakness, ALVAREZ, visual/ speech changes, abd pain, stool changes, n/v/d. Source History Provided: Patient, Family Member and EMS Mode of Arrival Mode of Arrival: EMS Timing Came On: Suddenly Duration Duration: Since Onset How lon Duration: Minutes Quality Quality: Decreased Alertness Severity Severity: Moderate Context Recent: denies Fever, Cough, Urinary Symptoms, Nausea, Vomiting, Rash, Trauma and Medication Change History Of: denies CVA, Dementia, Seizure, Hypoglycemia, Diabetes, On Insulin and IV Drug Use Associated Signs and Symptoms Associated Signs and Symptoms: Generalized Weakness and Decreased LOC; denies Right Sided Weakness, Left Sided Weakness, Chest Pain, Headache, Slurred Speech, Change in Memory, Decreased Oral Intake and Seizure PMH PMH Past Medical History: CHF, Coronary Artery Disease, Diabetes, Dyslipidemia and Sleep Apnea Past Surgical History: Yes Surgical History: Angioplasty/Stents Past Surgical History Comment: aicd Family History History of Family Medical Conditions: No Social History Does patient currently use any type of tobacco product: No Does any household member use tobacco: No Do you use any recreational Drugs:: No Lives With: Family ROS Review of Systems Constitutional: No Symptoms Reported Eyes: No Symptoms Reported ENTM: No Symptoms Reported Respiratoy: No Symptoms Reported Cardiovascular: Syncope; negative Chest Pain, Edema, Palpitations and Cyanosis Gastrointestinal/Abdominal: No Symptoms Reported Genitourinary: No Symptoms Reported Neurological: No Symptoms Reported Musculoskeletal: No Symptoms Reported Integumentary: No Symptoms Reported Hematologic/Lymphatic: No Symptoms Reported Endocrine: No Symptoms Reported Psychiatric: No Symptoms Reported All Other Systems: Reviewed and Negative PE Vitals Vital Signs: Temp Pulse Resp BP BP Pulse Ox 08/22/19 22:00 96 H 34 H 101/73 08/22/19 21:45 90 11 L 95 08/22/19 21:30 113/80 08/22/19 21:15 96 H 18 08/22/19 21:00 100 H 21 121/79 08/22/19 20:45 108 H 34 H 08/22/19 20:30 91 H 18 115/82 99 08/22/19 20:15 93 H 18 99 08/22/19 20:00 94 H 20 124/90 98 08/22/19 19:45 91 H 22 99 08/22/19 19:30 92 H 24 123/90 99 08/22/19 19:18 88 25 H 113/81 99 08/22/19 19:15 90 19 99 08/22/19 19:07 92 H 12 97 08/22/19 18:45 87 20 100 08/22/19 18:31 88 101/75 08/22/19 18:30 88 25 H 99 08/22/19 18:15 92 H 26 H 99 08/22/19 18:00 91 H 23 114/76 98 08/22/19 17:45 91 H 20 99 08/22/19 17:30 92 H 26 H 116/78 99 08/22/19 17:29 92 H 21 99 08/22/19 17:12 97.8 F 98 H 16 119/85 100 08/21/19 12:00 120/80 General Limitations: Language Barrier General Appearance: Alert Head Head Exam: Normal Inspection Eyes Eye exam: Normal Appearance ENT ENT Exam: Normal Exam External Ear Exam: Normal External Inspection Nose Exam: Normal Nose Exam Mouth Exam: Normal Inspection Throat Exam: Normal Inspection Neck Neck Exam: Normal Inspection Chest Chest Inspection: Normal Inspection Respiratory Respiratory Exam: Normal Lung Sounds Bilat Cardiovascular Cardiovascular Exam: Regular Rate, Normal Rhythm and Other (distant heart tones) Abdominal Exam Abdominal Exam: Normal Inspection, Normal Bowel Sounds and Soft Extremities Extremities Exam: Normal Inspection Back Back Exam: Normal Inspection Neurological Neurological Exam: Alert, Oriented X3 and CN II-XII Intact Patient Oriented To: Person, Place and Time Speech: Fluid Speech; negative Receptive Aphasia and Expressive Aphasia Cranial Nerve Exam: EOM Function (II, III, IV, ): Normal, Facial Sensation (V): Normal, Facial Palsy (VII): Normal, Spinal Accessory Function (XI): Normal and Tongue Deviation: Normal Motor Strength - LUE: 5/5 Motor Strength - RUE: 5/5 Motor Strength - LLE: 5/5 Motor Strength - RLE: 5/5 Psychological Psychiatric Exam: Normal Affect and Normal Mood Skin Skin Exam: Warm, Dry, Intact and Normal Color MDM Differential Diagnosis Metabolic: Dehydration, Delirium tr., DKA, Hypoglycemia and Post-ictal Structural: Closed Head Injury, CVA and SAH Toxicologic: Drug Overdose and ETOH Intoxification Infectious: Sepsis COURSE Treatment Treatment: 53 yo m w/ extensive prev hx of chf/ aicd in place presents after prolonged episode of syncope that resolved spontaneously. Neuro exam non focal. CTA neg- for PE. CT head negative. EKG paced rhythm. Troponin negative. h/h stable. Rachael wnl. 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 Family bringing in [employer] aicd home monitor. Discussed all details of case with Dr Rubio whom agrees to admit. [facility]OR Labs Reviewed Laboratory Results Reviewed?: Yes Result Diagrams: 08/22/19 17:35 08/22/19 17:35 Laboratory: WBC 8.4 X10^3/uL (3.6-10.0) 08/22/19 17:35 RBC 4.14 X10^6/uL (4.7-6.0) L 08/22/19 17:35 Hgb 12.5 g/dL (13.5-18.0) L 08/22/19 17:35 Hct 36.8 % (42.0-54.0) L 08/22/19 17:35 MCV 89.0 fL (80.0-100.0) 08/22/19 17:35 MCH 30.2 pg (27.0-34.0) 08/22/19 17:35 MCHC 34.0 g/dL (33.0-35.0) 08/22/19 17:35 RDW 16.1 % (11.6-16.5) 08/22/19 17:35 Plt Count 306 X10^3/uL (150.0-450.0) 08/22/19 17:35 MPV 6.6 fL (7.4-11.0) L 08/22/19 17:35 Neut % (Auto) 78.5 % (42.0-75.0) H 08/22/19 17:35 Lymph % (Auto) 15.5 % (21.0-51.0) L 08/22/19 17:35 [place] % (Auto) 4.8 % (0.0-13.0) 08/22/19 17:35 Eos % (Auto) 0.6 % (0.9-2.9) L 08/22/19 17:35 Baso % (Auto) 0.6 % (0.2-1.0) 08/22/19 17:35 Neut # (Auto) 6.6 x10^3/uL (2.2-4.8) H 08/22/19 17:35 Lymph # (Auto) 1.3 X10^3/uL (1.3-2.9) 08/22/19 17:35 [place] # (Auto) 0.4 x10^3/uL (0.3-0.8) 08/22/19 17:35 Eos # (Auto) 0.0 x10^3/uL (0.0-0.2) 08/22/19 17:35 Baso # (Auto) 0.1 X10^3/uL (0.0-0.1) 08/22/19 17:35 Absolute Nucleated RBC 0.1 /100WBC 08/22/19 17:35 Sodium 138 mmol/L (136-145) 08/22/19 17:35 Corrected Sodium 141 mmol/L (136-145) 08/22/19 17:35 Potassium 3.1 mmol/L (3.5-5.1) L 08/22/19 17:35 Chloride 100 mmol/L (98-107) 08/22/19 17:35 Carbon Dioxide 31.7 mmol/L (21-32) 08/22/19 17:35 BUN 11 mg/dL (7-18) 08/22/19 17:35 Creatinine 1.15 mg/dL (0.70-1.30) 08/22/19 17:35 Est GFR (MDRD) Af Amer > 60 (>60) 08/22/19 17:35 Est GFR (MDRD) Non-Af > 60 (>60) 08/22/19 17:35 Glucose 238 mg/dL (65-99) H 08/22/19 17:35 Calcium 8.5 mg/dL (8.5-10.1) 08/22/19 17:35 Corrected Calcium TNP 08/22/19 17:35 Total Bilirubin 0.70 mg/dL (0.2-1.0) 08/22/19 17:35 AST 49 Units/L (15-37) H 08/22/19 17:35 ALT 114 Units/L (12-78) H 08/22/19 17:35 Alkaline Phosphatase 160 Units/L (46-116) H 08/22/19 17:35 Troponin I < 0.02 ng/mL (0-1.5) 08/22/19 17:35 Total Protein 7.4 g/dL (6.4-8.2) 08/22/19 17:35 Albumin 3.7 g/dL (3.4-5.0) 08/22/19 17:35 Globulin 3.7 g/dL (2.5-4.5) 08/22/19 17:35 Albumin/Globulin Ratio 1.0 Ratio (1.1-2.1) L 08/22/19 17:35 Lipase 159 Units/L (73-393) 08/22/19 17:35 Specimen Type Random urine 08/22/19 18:36 Urine Color Dark yellow (YELLOW) 08/22/19 18:36 Urine Appearance Hazy (CLEAR) 08/22/19 18:36 Urine pH 6.0 (5.0 - 8.0) 08/22/19 18:36 Ur Specific [place] 1.015 (1.000-1.030) 08/22/19 18:36 Urine Protein 1+ (NEGATIVE) 08/22/19 18:36 Urine Glucose (UA) 2+ (NEGATIVE) 08/22/19 18:36 Urine Ketones Negative (NEGATIVE) 08/22/19 18:36 Urine Occult Blood Negative (NEGATIVE) 08/22/19 18:36 Urine Nitrite Negative (NEGATIVE) 08/22/19 18:36 Urine Bilirubin Negative (NEGATIVE) 08/22/19 18:36 Urine Urobilinogen Normal (NORMAL) 08/22/19 18:36 Ur Leukocyte Esterase Negative (NEGATIVE) 08/22/19 18:36 Urine RBC None seen /HPF (0-3) 08/22/19 18:36 Urine WBC None seen /HPF (0-5) 08/22/19 18:36 Ur Squamous Epith Cells Negative /HPF (NEGATIVE) 08/22/19 18:36 Urine Bacteria Negative /HPF (NEGATIVE) 08/22/19 18:36 Ur Culture Indicated? No/not indicated 08/22/19 18:36 Urine Opiates Screen Negative (NEG=<300) 08/22/19 18:36 Urine Methadone Screen Negative (NEG=<300) 08/22/19 18:36 Ur Barbiturates Screen Negative (NEG=<200) 08/22/19 18:36 Ur Phencyclidine Scrn Negative (NEG=<25) 08/22/19 18:36 Ur Amphetamines Screen Negative (NEG=<1000) 08/22/19 18:36 U Benzodiazepines Scrn Negative (NEG=<200) 08/22/19 18:36 Urine Cocaine Screen Negative (NEG=<300) 08/22/19 18:36 U Marijuana (THC) Screen Negative (NEG=<50) 08/22/19 18:36 XRAY XRAY Interpreted by: Radiologist X-ray Results: cta neg for pe ct head negative EKG Rate: 95 Rhythm: Paced Block: None ST: Nonsp Opioid Opioid Risk Tool Age (Mk box if 16-45): No History of Preadolescent Sexual Abuse: No Total: 0 Total Score Risk Category: Low Risk Copyright: [facility] predicting aberrant behaviors Diagnosis Discharge Problem: AICD (automatic cardioverter/defibrillator) present Syncope Qualifiers: Syncope type: unspecified Qualified Code(s): R55 - Syncope and collapse CAD (coronary artery disease) Qualifiers: Coronary Disease-Associated Artery/Lesion type: bypass graft [place] vs. transplanted heart: [place] heart Associated angina: without angina Qualified Code(s): I25.810 - Atherosclerosis of coronary artery bypass graft(s) without angina pectoris CHF (congestive heart failure) Qualifiers: Heart failure type: systolic Heart failure chronicity: chronic Qualified Code(s): I50.22 - Chronic systolic (congestive) heart failure Diabetes Qualifiers: Diabetes mellitus type: type 2 Diabetes mellitus penitentiary insulin use: without penitentiary use Diabetes mellitus complication status: without complication Qual ified Code(s): E11.9 - Type 2 diabetes mellitus without complications HTN (hypertension) Qualifiers: Hypertension type: essential hypertension Qualified Code(s): I10 - Essential (primary) hypertension Atrial fibrillation Qualifiers: Atrial fibrillation type: paroxysmal Qualified Code(s): I48.0 - Paroxysmal atrial fibrillation Instructions Forms: Excuse From Work Precautions for COVID19 Social Distancing
[2019-08-22 17:28] VITALS: BMI 26.2
--- NOTE | 2019-08-22 17:46 | RAD ---
HISTORYAMS, SYNCOPESTUDYCHEST, 1 VIEWCOMPARISONMay 2019FINDINGSThe trachea is midline. The cardiac silhouette is enlarged but stable as is a left-sided defibrillator device. The lungs are clear without focal infiltrate or effusion. The bony thorax is unremarkable.IMPRESSIONNo acute cardiopulmonary disease.Electronically signed by: NNAMDI QUINONES (August 22, 2019 17:44:23)
[2019-08-22 17:50] LABS: BASOPHILS # (AUTO) 0.1 X10^3/uL (0.0-0.1); BASOPHILS % (AUTO) 0.6 % (0.2-1.0); EOSINOPHILS % (AUTO) 0.6 % (0.9-2.9); HEMATOCRIT 36.8 % (42.0-54.0); HEMOGLOBIN 12.5 g/dL (13.5-18.0); LYMPHOCYTES # (AUTO) 1.3 X10^3/uL (1.3-2.9); LYMPHOCYTES % (AUTO) 15.5 % (21.0-51.0); MEAN CORPUSCULAR HEMOGLOBIN 30.2 pg (27.0-34.0); MEAN PLATELET VOLUME 6.6 fL (7.4-11.0); MONOCYTES # (AUTO) 0.4 x10^3/uL (0.3-0.8); MONOCYTES % (AUTO) 4.8 % (0.0-13.0); NEUTROPHILS # (AUTO) 6.6 x10^3/uL (2.2-4.8); NEUTROPHILS % (AUTO) 78.5 % (42.0-75.0); PLATELET COUNT 306 X10^3/uL (150.0-450.0); RED BLOOD COUNT 4.14 X10^6/uL (4.7-6.0); RED CELL DISTRIBUTION WIDTH 16.1 % (11.6-16.5); WHITE BLOOD COUNT 8.4 X10^3/uL (3.6-10.0)
[2019-08-22 18:05] LABS: ALANINE AMINOTRANSFERASE 114 Units/L (12-78); ALBUMIN 3.7 g/dL (3.4-5.0); ALKALINE PHOSPHATASE 160 Units/L (46-116); ASPARTATE AMINO TRANSFERASE 49 Units/L (15-37); BLOOD UREA NITROGEN 11 mg/dL (7-18); CALCIUM 8.5 mg/dL (8.5-10.1); CARBON DIOXIDE 31.7 mmol/L (21-32); CHLORIDE 100 mmol/L (98-107); COR NA(FOR HYPERGLY) 141 mmol/L (136-145); CREATININE 1.15 mg/dL (0.70-1.30); LIPASE 159 Units/L (73-393); SODIUM 138 mmol/L (136-145); TOTAL PROTEIN 7.4 g/dL (6.4-8.2); TROPONIN I < 0.02 ng/mL (0-1.5); eGFR NON BLACK RACES > 60 (>60)
[2019-08-22] MEDS ORDERED: NS 100 ML IV 100 ML IV ONE (18:22)
[2019-08-22 18:41] LABS: BILIRUBIN,URINE NEGATIVE (NEGATIVE); BLOOD/HEMOGLOBIN,URINE NEGATIVE (NEGATIVE); GLUCOSE, URINE 2+ (NEGATIVE); KETONES,URINE NEGATIVE (NEGATIVE); LEUKOCYTE ESTERASE ,URINE NEGATIVE (NEGATIVE); NITRITES,URINE NEGATIVE (NEGATIVE); PROTEIN,URINE 1+ (NEGATIVE); UROBILINOGEN,URINE NORMAL (NORMAL)
[2019-08-22 18:55] LABS: APPEARANCE,URINE HAZY (CLEAR); BACTERIA,URINE NEGATIVE /HPF (NEGATIVE); COLOR,URINE DARK YELLOW (YELLOW); RBC,URINE NONE SEEN /HPF (0-3); SQUAMOUS EPITHELIAL CELL,UR NEGATIVE /HPF (NEGATIVE)
--- NOTE | 2019-08-22 19:13 | CT ---
HISTORYAltered mental status.STUDYBRAIN W/O CONCOMPARISONNone.TECHNIQUEMultiple axial images of the head were obtained from the skull base to the vertex without administration of IV contrast. Sagittal and coronal reformatted images were performed. Automated exposure control (AEC) was utilized to adjust the MA and/or kV.FINDINGSThe sulci, cisterns and ventricles are age appropriate. There are a few scattered foci of low attenuation in the periventricular and subcortical white matter of both hemispheres. This is a nonspecific finding which likely represents mild microangiopathic change in a patient of this age.There is no evidence of acute territorial infarction, hemorrhage, mass, mass effect or midline shift. There are no abnormal intra-axial or extra-axial fluid collections.There is mucosal thickening and opacification of several ethmoid air cells. There is no evidence of acute osseous abnormality or significant soft tissue swelling.IMPRESSION1. No evidence of acute intracranial abnormality.2. Mild nonspecific white matter change.Electronically signed by: GAGE POWER (August 22, 2019 19:12:35)
--- NOTE | 2019-08-22 19:27 | CT ---
HISTORYSYNCOPESTUDYCTA CHESTCOMPARISONNoneTECHNIQUEMultiple axial images of the chest were obtained from the thoracic inlet to the upper abdomen after the administration of IV contrast. A PE protocol with 3D reconstructions utilizing axial MIPS imaging was performed and reviewed. Dose reduction techniques including Automated Exposure Control (AEC) and adjustment of mA and kV were utilized.FINDINGSThe mediastinum does not demonstrate significant pathological lymphadenopathy. There is some small non pathologically enlarged nodes noted. There is no pericardial effusion observed. Coronary arterial calcifications are noted in the heart is enlarged. The thoracic aorta is normal in its contour without evidence for aneurysmal dilatation. The central pulmonary arterial system does not demonstrate central filling defects to suggest pulmonary emboli.Evaluation of the lung parenchyma fails to demonstrate focal consolidation or effusion . No pulmonary nodule or mass can be identified. The bony thorax is unremarkable in its appearance . The visualized portions of the upper abdomen are grossly unremarkable .IMPRESSIONNegative CTA of the chest.Electronically signed by: NNAMDI QUINONES (August 22, 2019 19:26:05)
[2019-08-23] MEDS ORDERED: POTASSIUM CHLORIDE LIQ 20 MEQ UDC PO PRN (00:19)
[2019-08-23] MEDS ORDERED: K-RIDER 10 MEQ/NS 100 ML 10 MEQ/100 ML BAG IV PRN (00:19)
[2019-08-23] MEDS ORDERED: POTASSIUM CHL 40 MEQ/NS 0.45% 500 ML IV PRN (00:19)
[2019-08-23] MEDS ORDERED: KLOR-CON PO PRN (00:19)
[2019-08-23] MEDS ORDERED: MICRO K EXTEN CAP 10 MEQ PO PRN (00:19)
[2019-08-23] MEDS ORDERED: POTASSIUM CHL 60 MEQ/NS 0.45% 500 ML IV PRN (00:19)
[2019-08-23] MEDS ORDERED: NS 250 ML IV 250 ML IV ONE (01:30)
[2019-08-23] MEDS: K-DUR TAB 20 MEQ PO PRN ×2 (01:43→08:15)
[2019-08-23] MEDS: MAGNESIUM SULFATE 1 GRAM/100 mL PREMIX 1 GM/100 ML BAG IV PRN ×2 (01:44→02:57)
[2019-08-23] MEDS ORDERED: CARAFATE PO SCH (06:00)
[2019-08-23 06:12] LABS: BASOPHILS # (AUTO) 0.1 X10^3/uL (0.0-0.1); BASOPHILS % (AUTO) 0.8 % (0.2-1.0); EOSINOPHILS % (AUTO) 0.6 % (0.9-2.9); HEMOGLOBIN 12.1 g/dL (13.5-18.0); LYMPHOCYTES # (AUTO) 1.4 X10^3/uL (1.3-2.9); LYMPHOCYTES % (AUTO) 17.4 % (21.0-51.0); MEAN CORPUSCULAR HEMOGLOBIN 30.4 pg (27.0-34.0); MEAN CORPUSCULAR HGB CONC 34.4 g/dL (33.0-35.0); MEAN CORPUSCULAR VOLUME 88.3 fL (80.0-100.0); MEAN PLATELET VOLUME 6.6 fL (7.4-11.0); MONOCYTES # (AUTO) 0.4 x10^3/uL (0.3-0.8); NEUTROPHILS # (AUTO) 6.3 x10^3/uL (2.2-4.8); NEUTROPHILS % (AUTO) 76.2 % (42.0-75.0); PLATELET COUNT 278 X10^3/uL (150.0-450.0); RED BLOOD COUNT 3.97 X10^6/uL (4.7-6.0); RED CELL DISTRIBUTION WIDTH 15.9 % (11.6-16.5); WHITE BLOOD COUNT 8.3 X10^3/uL (3.6-10.0)
[2019-08-23 06:30] LABS: ALANINE AMINOTRANSFERASE 90 Units/L (12-78); ALBUMIN 3.3 g/dL (3.4-5.0); ALKALINE PHOSPHATASE 140 Units/L (46-116); ASPARTATE AMINO TRANSFERASE 34 Units/L (15-37); BLOOD UREA NITROGEN 10 mg/dL (7-18); CALCIUM 8.3 mg/dL (8.5-10.1); CARBON DIOXIDE 29.9 mmol/L (21-32); CHLORIDE 101 mmol/L (98-107); COR CA(FOR HYPOALB) 8.9 mg/dL (8.5-10.1); COR NA(FOR HYPERGLY) 140 mmol/L (136-145); CREATININE 1.16 mg/dL (0.70-1.30); MAGNESIUM 2.4 mg/dL (1.7-2.9); SODIUM 138 mmol/L (136-145); TOTAL PROTEIN 6.7 g/dL (6.4-8.2); eGFR NON BLACK RACES > 60 (>60)
[2019-08-23 07:48] VITALS: BP 107/65
[2019-08-23] MEDS ORDERED: HumuLIN R SC PRN (08:48)
[2019-08-23] MEDS ORDERED: ALDACTONE TAB 25 MG PO SCH (09:00)
[2019-08-23] MEDS ORDERED: ELIQUIS PO SCH (09:00)
[2019-08-23] MEDS ORDERED: BUMEX TAB 1 MG PO SCH (09:00)
[2019-08-23] MEDS ORDERED: CORDARONE TAB 200 MG PO SCH (09:00)
[2019-08-23] MEDS ORDERED: COREG TAB 3.125 MG PO SCH (09:00)
[2019-08-23] MEDS ORDERED: PROTONIX TAB 40 MG PO SCH (09:00)
[2019-08-23] MEDS ORDERED: AMARYL TAB 4 MG PO SCH (09:00)
[2019-08-23] MEDS ORDERED: ASPIRIN EC 81 MG PO SCH (09:00)
[2019-08-23] MEDS ORDERED: PLAVIX PO SCH (09:00)
--- NOTE | 2019-08-23 10:36 | DR.SSS ---
SHORT STAY SUMMARY Admission Date Date of Admission: 08/22/19 Discharge Date Discharge Date: 08/23/19 Admission Diagnoses Admission Diagnoses: Syncope Dilated cardiomyopathy Congestive heart failure Discharge Diagnoses Discharge Diagnoses: Syncope Atrial fibrillation Congestive heart failure AICD present Hypokalemia Chief Complaint Chief Complaint: Syncope History of Present Illness History of Present Illness: Mr. Ramirez is a 53y/o male with dilated cardiomyopathy with EF 31%, CAD s/ PCI, Diabetes was discharged recently and presented with a syncopal episode yesterday. Patient was brought in my family after passing out at home while he was cutting okra. Family noticed patient was passed out, breathing spontaneously, no jerking movements, no urinary incontinence or tongue biting. Patient woke up within 30 mins. He does not recall the episode. He states he felt nauseous and dizzy prior but did not feel a shock or chest pain. He states similar episode happened months ago. ED work-up CXR (-) CT PE: no pulmonary emboli CT-head: no acute process Labs: trop (-), K: 3.[address] Soares in [place] and also sees cardio in [place] where the device was placed. Cardio in [place] as contacted and plan was to remotely interrogate the device but unfortunately that did not work. Device was not able to be connected. Patient was admitted overnight with telemetry. Past Medical History Past Medical History: CHF, Coronary Artery Disease, Diabetes, Dyslipidemia and Sleep Apnea Past Surgical History Surgical History: Ortho Surgery and Other Additional Surgical History: AICD placement Allergies Allergies Allergy/AdvReac Type Severity Reaction Status Date / Time No Known Drug Allergies Allergy Verified 08/18/19 13:16 Medications Home Medications: No Known Drug Allergies Allergy (Verified 08/18/19 13:16) CONTINUE taking the following medications aspirin 81 mg PO DAILY 08/23/19 [History] ondansetron HCl 4 mg PO Q8H PRN 08/23/19 [History] Social History Does patient currently use any type of tobacco product: Yes Have you used tobacco products in the last 12 months: Yes Type of Tobacco Use: Cigarettes How many years tobacco product used: 20 Does any household member use tobacco: No Alcohol Use: Rarely Drug Use: None Review of Systems Constitutional: Weakness Eyes: No Symptoms Reported ENT: No Symptoms Reported Respiratory: Shortness of Breath and SOB with Excertion Cardiovascular: Orthopnea and Light Headedness Gastrointestinal: Nausea and Abdominal Pain Genitourinary: No Symptoms Reported Musculoskeletal: No Symptoms Reported Skin: No Symptoms Reported Neurological: No Symptoms Reported Physical Exam Vital Signs: Last Vital Signs Temp 98.8 F 08/23/19 07:47 Pulse 87 08/23/19 07:47 Resp 20 08/23/19 07:47 BP 107/65 08/23/19 07:47 Pulse Ox 97 08/23/19 07:47 Oriented: Normal Eyes: Normal Ear: Normal Throat: Normal Respiratory: Clear Throughout Cardiovascular: Normal Auscultation: Bowel Sounds: Normal Palpation: Normal Tenderness: Normal Skin: Normal Musculoskeletal: Normal Psychiatric: Normal Mood Description: Calm Affect: Normal Speech Pattern: Clear and Appropriate Labs Labs: Laboratory Last Values WBC 8.3 X10^3/uL (3.6-10.0) 08/23/19 05:35 RBC 3.97 X10^6/uL (4.7-6.0) L 08/23/19 05:35 Hgb 12.1 g/dL (13.5-18.0) L 08/23/19 05:35 Hct 35.0 % (42.0-54.0) L 08/23/19 05:35 MCV 88.3 fL (80.0-100.0) 08/23/19 05:35 MCH 30.4 pg (27.0-34.0) 08/23/19 05:35 MCHC 34.4 g/dL (33.0-35.0) 08/23/19 05:35 RDW 15.9 % (11.6-16.5) 08/23/19 05:35 Plt Count 278 X10^3/uL (150.0-450.0) 08/23/19 05:35 MPV 6.6 fL (7.4-11.0) L 08/23/19 05:35 Neut % (Auto) 76.2 % (42.0-75.0) H 08/23/19 05:35 Lymph % (Auto) 17.4 % (21.0-51.0) L 08/23/19 05:35 [place] % (Auto) 5.0 % (0.0-13.0) 08/23/19 05:35 Eos % (Auto) 0.6 % (0.9-2.9) L 08/23/19 05:35 Baso % (Auto) 0.8 % (0.2-1.0) 08/23/19 05:35 Neut # (Auto) 6.3 x10^3/uL (2.2-4.8) H 08/23/19 05:35 Lymph # (Auto) 1.4 X10^3/uL (1.3-2.9) 08/23/19 05:35 [place] # (Auto) 0.4 x10^3/uL (0.3-0.8) 08/23/19 05:35 Eos # (Auto) 0.0 x10^3/uL (0.0-0.2) 08/23/19 05:35 Baso # (Auto) 0.1 X10^3/uL (0.0-0.1) 08/23/19 05:35 Absolute Nucleated RBC 0.0 /100WBC 08/23/19 05:35 Sodium 138 mmol/L (136-145) 08/23/19 05:35 Corrected Sodium 140 mmol/L (136-145) 08/23/19 05:35 Potassium 3.2 mmol/L (3.5-5.1) L 08/23/19 05:35 Chloride 101 mmol/L (98-107) 08/23/19 05:35 Carbon Dioxide 29.9 mmol/L (21-32) 08/23/19 05:35 BUN 10 mg/dL (7-18) 08/23/19 05:35 Creatinine 1.16 mg/dL (0.70-1.30) 08/23/19 05:35 Est GFR (MDRD) Af Amer > 60 (>60) 08/23/19 05:35 Est GFR (MDRD) Non-Af > 60 (>60) 08/23/19 05:35 Glucose 201 mg/dL (65-99) H 08/23/19 05:35 POC Glucose (mg/dL) 197 mg/dL (65-99) H 08/23/19 05:33 Calcium 8.3 mg/dL (8.5-10.1) L 08/23/19 05:35 Corrected Calcium 8.9 mg/dL (8.5-10.1) 08/23/19 05:35 Magnesium 2.4 mg/dL (1.7-2.9) 08/23/19 05:35 Total Bilirubin 0.50 mg/dL (0.2-1.0) 08/23/19 05:35 AST 34 Units/L (15-37) 08/23/19 05:35 ALT 90 Units/L (12-78) H 08/23/19 05:35 Alkaline Phosphatase 140 Units/L (46-116) H 08/23/19 05:35 Troponin I < 0.02 ng/mL (0-1.5) 08/22/19 17:35 Total Protein 6.7 g/dL (6.4-8.2) 08/23/19 05:35 Albumin 3.3 g/dL (3.4-5.0) L 08/23/19 05:35 Globulin 3.4 g/dL (2.5-4.5) 08/23/19 05:35 Albumin/Globulin Ratio 1.0 Ratio (1.1-2.1) L 08/23/19 05:35 Lipase 159 Units/L (73-393) 08/22/19 17:35 Specimen Type Random urine 08/22/19 18:36 Urine Color Dark yellow (YELLOW) 08/22/19 18:36 Urine Appearance Hazy (CLEAR) 08/22/19 18:36 Urine pH 6.0 (5.0 - 8.0) 08/22/19 18:36 Ur Specific [place] 1.015 (1.000-1.030) 08/22/19 18:36 Urine Protein 1+ (NEGATIVE) 08/22/19 18:36 Urine Glucose (UA) 2+ (NEGATIVE) 08/22/19 18:36 Urine Ketones Negative (NEGATIVE) 08/22/19 18:36 Urine Occult Blood Negative (NEGATIVE) 08/22/19 18:36 Urine Nitrite Negative (NEGATIVE) 08/22/19 18:36 Urine Bilirubin Negative (NEGATIVE) 08/22/19 18:36 Urine Urobilinogen Normal (NORMAL) 08/22/19 18:36 Ur Leukocyte Esterase Negative (NEGATIVE) 08/22/19 18:36 Urine RBC None seen /HPF (0-3) 08/22/19 18:36 Urine WBC None seen /HPF (0-5) 08/22/19 18:36 Ur Squamous Epith Cells Negative /HPF (NEGATIVE) 08/22/19 18:36 Urine Bacteria Negative /HPF (NEGATIVE) 08/22/19 18:36 Ur Culture Indicated? No/not indicated 08/22/19 18:36 Urine Opiates Screen Negative (NEG=<300) 08/22/19 18:36 Urine Methadone Screen Negative (NEG=<300) 08/22/19 18:36 Ur Barbiturates Screen Negative (NEG=<200) 08/22/19 18:36 Ur Phencyclidine Scrn Negative (NEG=<25) 08/22/19 18:36 Ur Amphetamines Screen Negative (NEG=<1000) 08/22/19 18:36 U Benzodiazepines Scrn Negative (NEG=<200) 08/22/19 18:36 Urine Cocaine Screen Negative (NEG=<300) 08/22/19 18:36 U Marijuana (THC) Screen Negative (NEG=<50) 08/22/19 18:36 Hospital Course Hospital Course: Patient was admitted due to syncopal episode. He has hx of dilated cardiomyopathy with ED 31%, AICD present. His device could not be interrogated remotely as planned. He had not had any further episodes overnight. Patient does have a follow up with Cardiology on Sat. He states he will call and get an appointment early and then can arrange follow up in [place]. His vitals are stable. All the syncope work up was negative. Labs were monitored, potassium replaced. Patient will resume taking his home medications with no changes. Discharge Medications Discharge Medications: Home Medication List aspirin 81 mg PO DAILY 08/23/19 [History] ondansetron HCl 4 mg PO Q8H PRN 08/23/19 [History] Prescriptions: Discharge Disposition Discharge Disposition: Home
[2019-08-23] MEDS ORDERED: REQUIP PO SCH (21:00)
== END 2019-08-23 11:17 | disposition home or self-care (01) ==
LOC: MED/SURG 17:12 → ER 17:12 → MED/SURG 23:33
PROVIDERS: ADMIT Family Medicine; ATTEND Family Medicine
DX: E78.2 Mixed hyperlipidemia; Z95.810 Presence of automatic (implantable) cardiac defibrillator; I48.91 Unspecified atrial fibrillation; I48.0 Paroxysmal atrial fibrillation; E11.65 Type 2 diabetes mellitus with hyperglycemia; R41.82 Altered mental status, unspecified; R55 Syncope and collapse; I25.810 Atherosclerosis of coronary artery bypass graft(s) without angina pectoris; E87.6 Hypokalemia; I11.0 Hypertensive heart disease with heart failure; R06.02 Shortness of breath; I50.22 Chronic systolic (congestive) heart failure
CPT/HCPCS: 36415; 70450; 71010; 71045; 71275; 80053; 80307; 81001; 83690; 83735; 84484; 85025; 87040; 93005; 94760; 96365; 99284; A4216; A4222; G0378; J3475; J7050